=== PATIENT | male | born 1995 | race African-American/Black ===

== ENCOUNTER → 2024-03-01 | Outpatient (CLI) | payer OTHER ==
[~2024-03-01] MED LIST: IMAT100TAB PO; ISOVUE-370 76% 100ML VIAL As Ordered ONE; MILK175C6 PO; PANC1CAP3 PO; VITA100T59 PO; VITA500045 PO; [UNRECOGNIZED DRUG - OTHER]
== END ==
LOC: M RAD 13:10
PROVIDERS: ATTEND Specialist
DX: D72.19 Other eosinophilia (principal); R91.8 Other nonspecific abnormal finding of lung field; I31.39 Other pericardial effusion (noninflammatory)
CPT/HCPCS: 71260; 74177; Q9967

== ENCOUNTER → 2025-01-09 | Outpatient (CLI) | payer OTHER ==
[~2025-01-09] MED LIST changes: +ERGO125013 PO; +ISOVUE-370 76% 100 ML VIAL ONE; -ISOVUE-370 76% 100ML VIAL As Ordered ONE; -VITA500045 PO
== END ==
LOC: M PLAIMG 11:57
PROVIDERS: ATTEND Specialist
DX: D72.19 Other eosinophilia (principal)
CPT/HCPCS: 71260; 74177; Q9967

== ENCOUNTER → 2025-01-18 | Outpatient (CLI) | payer OTHER ==
[~2025-01-18] MED LIST changes: -ISOVUE-370 76% 100 ML VIAL ONE
== END ==
LOC: M RAD 06:52
PROVIDERS: ATTEND Specialist
DX: D72.10 Eosinophilia, unspecified (principal)

== ENCOUNTER → 2025-02-27 | Outpatient (CLI) | payer OTHER ==
[~2025-02-27] MED LIST changes: +IMAT100T PO
== END ==
LOC: M CARPUL 08:10
PROVIDERS: ATTEND Specialist
DX: D72.19 Other eosinophilia (principal)